=== PATIENT | male | born 1970 | race Caucasian/White ===

== ENCOUNTER 2020-03-14 21:22 | Emergency (ER) | payer MEDICAID, SELFPAY ==
[2020-03-14] VITALS (12 sets, daily range): BP systolic 133–202; BP diastolic 91–125; PULSE 82–124; RESP 14–20; TEMP 36.8–36.9; O2SAT 97–98; BMI 25.1
--- NOTE | 2020-03-14 21:42 | XR_ITS ---
EXAMINATION: CHEST 1 VIEW CLINICAL INFORMATION: Palpitations. COMPARISON: None. TECHNIQUE: An AP view of the chest is provided. FINDINGS: The cardiac silhouette is not enlarged. The mediastinal and hilar contours are unremarkable. There are neither pleural effusions nor pneumothoraces. There are no consolidations. The osseous structures are unremarkable. XR/XR chest 1V IMPRESSION: No evidence for acute disease.
--- NOTE | 2020-03-14 21:42 | ECG_ITS ---
Test Reason : CHEST PAIN Blood Pressure : / mmHG Vent. Rate : 120 BPM Atrial Rate : 120 BPM P-R Int : 152 ms QRS Dur : 086 ms QT Int : 318 ms P-R-T Axes : 068 021 031 degrees QTc Int : 449 ms Sinus tachycardia Nonspecific ST abnormality Abnormal ECG When compared with ECG of 19-JAN-2002 01:57, Vent. rate has increased BY 48 BPM Questionable change in QRS axis ST now depressed in Anterior leads T wave amplitude has decreased in Anterior leads Referred By: Dot Blas Electronically Signed By:MALVIN DU MD
[2020-03-14 21:54] LABS: MANUAL DIFF FLAG NO
--- NOTE | 2020-03-14 21:54 | ED_ITS ---
HPI - Arrhythmia/Palpitations General Chief Complaint: Arrhythmia/Palpitations Stated Complaint: palpitations Time Seen by Provider: 03/14/20 21:54 Source: patient Mode of arrival: ambulatory Limitations: no limitations History of Present Illness HPI narrative: This is a 49-year-old male without significant past medical history who states that for the past couple of days he has had intermittent and increasing heart palpitations without associated chest pain but states that he experiences shortness of breath as well as diaphoresis with what he refers to as small hiccups but otherwise denies any sort of nausea and says that he has had some left arm tingling intermittently for the past few weeks but attributed it to his guitar playing. Otherwise he denies any headache, dizziness, abdominal discomfort. He states that his palpitations are more prominent when he lays back. He denies any vision loss or neck pain, or tooth pain. Related Data Previous Rx's Medication Instructions Recorded hydrochlorothiazide 25 mg PO DAILY 30 Days #30 tab 03/15/20 Allergies Allergy/AdvReac Type Severity Reaction Status Date / Time No Known Allergies Allergy Verified 03/14/20 21:34 Review of Systems Review of Systems: Pertinent positives and negatives as stated in the in HPI and 10 point review systems is otherwise negative. [facility] Past Medical History Source: nursing notes reviewed Medical History Spontaneous pneumothorax Social History Social History Alcohol intake: never Smoked in Last 30 Days: No Use of substances other than those prescribed or required for medical reasons: No Advance Directives: Yes Advance Directives Information Provided: No Advance Directives on File: No Physical Exam Vital Signs: Vital Signs: Vital Signs Temp Pulse Resp BP Pulse Ox 03/15/20 01:30 79 138/87 03/15/20 01:28 79 13 161/100 H 98 03/15/20 01:00 80 160/91 H 03/15/20 00:45 82 147/92 H 03/15/20 00:07 97.8 F 92 16 150/93 H 97 03/14/20 23:31 98.3 F 92 19 133/93 H 97 03/14/20 23:15 82 142/91 H 98 03/14/20 23:00 92 156/110 H 98 03/14/20 22:30 100 16 151/97 H 98 03/14/20 22:29 102 H 15 150/100 H 98 03/14/20 22:27 106 H 17 167/108 H 97 03/14/20 22:25 109 H 170/113 H 03/14/20 22:24 108 H 17 170/113 H 97 03/14/20 22:15 15 185/117 H 97 03/14/20 21:51 98.4 F 113 H 14 165/115 H 98 03/14/20 21:30 124 H 20 202/125 H 98 Body Mass Index 25.1 VITAL SIGNS: Reviewed. GENERAL: Well developed, well nourished, in no acute distress. HEAD: Normocephalic/atraumatic, EYES: PERRLA, EOMI intact without pain, no nystagmus/pallor/icterus noted EARS: Ext canals without abnormality, TMs non-bulging and non-erythematous NOSE: Nares patent bilateral OROPHARYNX: no oral lesions noted, posterior pharynx clear and non-erythematous without noted tonsillar enlargement/erythema/exudates NECK: Supple, no adenopathy LUNGS: Normal breath sounds. No adventitious sounds or accessory muscle use. SpO2<98> CARDIOVASCULAR: Tachycardia, Regular rate and rhythm without noted murmurs, no JVD or lower extremity edema, on assessment of radial and ulnar pulses in the upper extremities is noted that the right is greater than the left, however on measurement of blood pressure RT: 185/117,LT: 180/126. ABDOMEN: Soft, non-tender, non-distended with bowel sounds. No rigidity. No guarding. No palpable masses or hernias noted MUSCULOSKELETAL: No tenderness, deformities, or effusions noted on gross inspection. EXTREMITIES: No cyanosis, clubbing or edema. SKIN: Inspection of the skin reveals no rashes, ulcerations, jaundice, pallor, or petechiae. NEUROLOGIC: Alert and oriented x 4. Strength and sensation to light touch were grossly intact x 4. Course Course Course Narrative: This is a 49-year-old male with history and clinical presentation most concerning for possible dissection as there are noted ST depressions in V4 -V6 and with the holes abnormalities in conjunction with the significant hypertension in addition to palpitations will evaluate for dissection as well as possible PE although clinical history is less prominent to support a PE. In addition, will rule out possible pneumonia but this is felt to be less likely. Review of all investigations is negative for evidence of infectious, anemia, electrolyte abnormality, thyroid dysfunction in etiology and high sensitivity troponin is negative with a chest x-ray negative for any acute findings. patient's blood pressure and heart rate responded well to the labetalol as well as gradual improvement of his symptoms. The decision was made in conjunction with the patient to proceed with CT for possible dissection given the constellation of symptoms and objective findings. on review of CT scan is negative for any evidence of PE or dissection and repeat high sensitivity troponin was again negative. All results and findings were discussed with patient at bedside and he was strongly encouraged to follow up with primary care provider and will be discharged with hydrochlorothiazide, daily as a 30 day supply in the interim. MDM - Arrhythmia/Palpitations Lab Data Result diagrams: 03/14/20 21:48 03/14/20 21:48 Labs: Lab Results 03/14/20 03/14/20 03/14/20 Range/Units 21:48 21:48 21:48 WBC 10.1 (4.8-10.8) X10*3/uL RBC 5.30 (4.60-5.80) X10*6/uL Hgb 15.3 (14.0-18.0) g/dl Hct 44.8 (42-52) % MCV 84.5 (80-98) fL MCH 28.9 (27.0-33.0) pg MCHC 34.2 (31.0-36.0) g/dl RDW 12.3 (11.0-16.0) % Plt Count 267 (160-400) X10*3/uL MPV 8.4 L (9.4-12.4) fL Immature Gran % (Auto) 0.2 (0.0-0.4) % Neut % (Auto) 58.0 (45-73) % Lymph % (Auto) 37.0 (20-40) % Waldo % (Auto) 3.9 (2-11) % Eos % (Auto) 0.3 (0-4) % Baso % (Auto) 0.6 (0-2) % Lymph # (Auto) 3.7 (1.2-4.9) X10*3/uL Waldo # (Auto) 0.4 (0.1-1.2) X10*3/uL Eos # (Auto) 0.0 (0.0-0.4) X10*3/uL Baso # (Auto) 0.1 (0.0-0.2) X10*3/uL Abs Immat Gran (auto) 0.02 (0.00-0.03) X10*3/uL Absolute Neuts (auto) 5.9 (2.0-8.3) X10*3/uL Absolute Nucleated RBC 0.000 (0.0-0.012) X10*3/uL Nucleated RBC % (auto) 0.0 (0.0-0.2) /100WBC PT (10.8-13.0) SEC INR (0.9-1.1) D-Dimer NG/ML Hold Blue Top SEE NOTE Sodium 140 (135-145) mmol/L Potassium 3.7 (3.3-5.1) mmol/l Chloride 101 (96-108) mmol/L Carbon Dioxide 26 (22-29) mmol/L Anion Gap 17 (12-20) BUN 11 (9-16) mg/dL Creatinine 1.06 (0.5-1.4) mg/dL Estim Creat Clear Calc 82.4 Estimated GFR > 60 Random Glucose 186 H (60-115) mg/dL Calcium 9.2 (8.4-10.2) mg/dL Troponin I High Sens (<3.5-35.0) ng/L TSH 2.10 (0.32-4.0) mIU/mL 03/14/20 03/14/20 03/15/20 Range/Units 21:48 22:32 01:34 WBC (4.8-10.8) X10*3/uL RBC (4.60-5.80) X10*6/uL Hgb (14.0-18.0) g/dl Hct (42-52) % MCV (80-98) fL MCH (27.0-33.0) pg MCHC (31.0-36.0) g/dl RDW (11.0-16.0) % Plt Count (160-400) X10*3/uL MPV (9.4-12.4) fL Immature Gran % (Auto) (0.0-0.4) % Neut % (Auto) (45-73) % Lymph % (Auto) (20-40) % Waldo % (Auto) (2-11) % Eos % (Auto) (0-4) % Baso % (Auto) (0-2) % Lymph # (Auto) (1.2-4.9) X10*3/uL Waldo # (Auto) (0.1-1.2) X10*3/uL Eos # (Auto) (0.0-0.4) X10*3/uL Baso # (Auto) (0.0-0.2) X10*3/uL Abs Immat Gran (auto) (0.00-0.03) X10*3/uL Absolute Neuts (auto) (2.0-8.3) X10*3/uL Absolute Nucleated RBC (0.0-0.012) X10*3/uL Nucleated RBC % (auto) (0.0-0.2) /100WBC PT 15.0 H (10.8-13.0) SEC INR 1.3 H (0.9-1.1) D-Dimer 233 NG/ML Hold Blue Top Sodium (135-145) mmol/L Potassium (3.3-5.1) mmol/l Chloride (96-108) mmol/L Carbon Dioxide (22-29) mmol/L Anion Gap (12-20) BUN (9-16) mg/dL Creatinine (0.5-1.4) mg/dL Estim Creat Clear Calc Estimated GFR Random Glucose (60-115) mg/dL Calcium (8.4-10.2) mg/dL Troponin I High Sens < 3.5 < 3.5 (<3.5-35.0) ng/L TSH (0.32-4.0) mIU/mL ECG Data Attestation: I personally reviewed and interpreted this ECG as follows: Prior ECG tracings: available for review Interpretation: sinus tachycardia, HR - 120, there is noted ST depressions V4- V6 without noted ST elevations elsewhere, NM/QRS/ QTC are within normal limits and on comparison with prior EKG the only observable differences are the ST changes in V4 -V6 Discharge Plan Discharge Clinical Impression: Palpitations Patient Disposition: Home, Self-Care Instructions: Heart Palpitations (ED), DASH Eating Plan (ED), Hypertension (ED) Additional Instructions: 1. Follow-up with your primary care provider by calling the office Saturday to set up an appointment. The patient and/or family acknowledge understanding of results (as applicable), diagnosis, treatment plan, need for follow up, and symptoms that should prompt a return to the emergency room. Prescriptions: New hydrochlorothiazide 25 mg tablet 25 mg PO DAILY 30 Days Qty: 30 RF: 0 Referrals: Physician,None [Primary Care Provider] - 2 days ( hypertension, palpitations)
[2020-03-14 21:56] LABS: Basophils Absolute Auto 0.1 X10*3/uL (0.0-0.2); Basophils Percent Auto 0.6 % (0-2); Eosinophils Percent Auto 0.3 % (0-4); Hematocrit 44.8 % (42-52); Hemoglobin 15.3 g/dl (14.0-18.0); Imm Gran Abs Auto 0.02 X10*3/uL (0.00-0.03); Imm Gran Pct Auto 0.2 % (0.0-0.4); Lymphocytes Absolute Auto 3.7 X10*3/uL (1.2-4.9); Mean Corpuscular HGB Conc 34.2 g/dl (31.0-36.0); Mean Corpuscular Hemoglobin 28.9 pg (27.0-33.0); Mean Corpuscular Volume 84.5 fL (80-98); Mean Platelet Volume 8.4 fL (9.4-12.4); Monocytes Absolute Auto 0.4 X10*3/uL (0.1-1.2); Monocytes Percent Auto 3.9 % (2-11); Neutrophils Absolute Auto 5.9 X10*3/uL (2.0-8.3); Platelet Count 267 X10*3/uL (160-400); Red Cell Distribution Width 12.3 % (11.0-16.0); White Blood Count 10.1 X10*3/uL (4.8-10.8)
[2020-03-14 22:21] LABS: Anion Gap 17 (12-20); Blood Urea Nitrogen 11 mg/dL (9-16); Calcium 9.2 mg/dL (8.4-10.2); Carbon Dioxide 26 mmol/L (22-29); Chloride 101 mmol/L (96-108); Creatinine Clr Calc Pharmacy 82.4; Estimated Glomerular Filt Rate > 60; Glucose Random 186 mg/dL (60-115); Potassium 3.7 mmol/l (3.3-5.1); Sodium 140 mmol/L (135-145)
[2020-03-14] MEDS: Labetalol HCL 100 MG/20 ML VIAL 10 MG IVPUSH (22:25)
[2020-03-14 22:28] LABS: Troponin-I High Sensitivity < 3.5 ng/L (<3.5-35.0)
[2020-03-14 22:56] LABS: INTERNATIONAL NORM RATIO 1.3 (0.9-1.1)
[2020-03-14 22:58] LABS: D Dimer 233 NG/ML
--- NOTE | 2020-03-14 23:25 | CT_ITS ---
EXAMINATION: CT PULMONARY EMBOLISM STUDY CLINICAL INFORMATION: Palpitations. COMPARISON: Same day chest radiograph. TECHNIQUE: Contiguous helical images of the chest were obtained following the administration of IV contrast. Multiplanar reconstructions were performed. MIPS were obtained and reviewed. DLP: 316 mGy-cm. CONTRAST: 80 mL of Omnipaque 350 were administered without incident. FINDINGS: The heart is of normal size. There is no pericardial effusion. The great vessels are unremarkable. Specifically, there is no pulmonary arterial filling defect. There is no CT evidence for pulmonary embolism. There are no chest wall masses. Review of lung windows demonstrates that there are neither pleural effusions nor pneumothoraces. There are no consolidations. There are no pulmonary parenchymal nodules. Limited evaluation of the upper abdomen demonstrates that the liver is of normal size and attenuation without focal lesions. Normal adrenal glands are identified. CT/CT angio chest IMPRESSION: No CT evidence for pulmonary embolism. Automated exposure control (Care Dose) Adjustment of the mA and/or kv according to patient size (this includes techniques or standardized protocols for targeted exams where dose is matched to indication / reason for exam; i.e. extremities or head).
[2020-03-15] MEDS: iohexoL 350 MG/ML 100 ML INFUS..BTL 70 ML IV (00:01)
[2020-03-15 00:07] VITALS: BP 150/93; PULSE 92; RESP 16; TEMP 36.6; O2SAT 97
[2020-03-15 00:45] VITALS: BP 147/92; PULSE 82
[2020-03-15 01:00] VITALS: BP 160/91; PULSE 80
--- NOTE | 2020-03-15 01:16 | ECG_ITS ---
Test Reason : CHEST PAIN Blood Pressure : / mmHG Vent. Rate : 076 BPM Atrial Rate : 076 BPM P-R Int : 164 ms QRS Dur : 094 ms QT Int : 374 ms P-R-T Axes : 034 014 036 degrees QTc Int : 420 ms Normal sinus rhythm Normal ECG When compared with ECG of 14-MAR-2020 21:26, Vent. rate has decreased BY [address] elevation has replaced ST depression in Anterolateral leads Possible Early repolarization Referred By: Dot Blas Electronically Signed By:MALVIN DU MD
[2020-03-15 01:28] VITALS: BP 161/100; PULSE 79; RESP 13; O2SAT 98
[2020-03-15 01:30] VITALS: BP 138/87; PULSE 79
[2020-03-15 02:08] LABS: Troponin-I High Sensitivity < 3.5 ng/L (<3.5-35.0)
[2020-03-15 02:39] VITALS: BP 136/98; PULSE 73; RESP 16; TEMP 36.6; O2SAT 98
== END 2020-03-15 02:42 | disposition home or self-care (01) ==
PROVIDERS: Emergency Provider Student in an Organized Health Care Education/Training Program
DX: R00.2 Palpitations (principal); R00.0 Tachycardia, unspecified; I10 Essential (primary) hypertension; R94.31 Abnormal electrocardiogram [ECG] [EKG]; Z79.899 Other long term (current) drug therapy
CPT/HCPCS: 36415; 71045; 71275; 80048; 84443; 84484; 85025; 85379; 85610; 93005; 96374; 99284; 99285; Q9967

== ENCOUNTER 2020-04-26 13:43 | Outpatient (REF) | payer MEDICAID, SELFPAY ==
[2020-04-26 14:14] LABS: MANUAL DIFF FLAG NO
[2020-04-26 14:17] LABS: Basophils Absolute Auto 0.1 X10*3/uL (0.0-0.2); Basophils Percent Auto 0.6 % (0-2); Eosinophils Percent Auto 0.1 % (0-4); Hematocrit 45.4 % (42-52); Hemoglobin 15.4 g/dl (14.0-18.0); Imm Gran Abs Auto 0.02 X10*3/uL (0.00-0.03); Imm Gran Pct Auto 0.2 % (0.0-0.4); Lymphocytes Absolute Auto 3.6 X10*3/uL (1.2-4.9); Lymphocytes Percent Auto 42.1 % (20-40); Mean Corpuscular HGB Conc 33.9 g/dl (31.0-36.0); Mean Corpuscular Hemoglobin 28.7 pg (27.0-33.0); Mean Corpuscular Volume 84.7 fL (80-98); Mean Platelet Volume 8.7 fL (9.4-12.4); Monocytes Absolute Auto 0.5 X10*3/uL (0.1-1.2); Monocytes Percent Auto 6.1 % (2-11); Neutrophils Absolute Auto 4.4 X10*3/uL (2.0-8.3); Neutrophils Percent Auto 50.9 % (45-73); Platelet Count 317 X10*3/uL (160-400); Red Blood Count 5.36 X10*6/uL (4.60-5.80); Red Cell Distribution Width 12.6 % (11.0-16.0); White Blood Count 8.6 X10*3/uL (4.8-10.8)
[2020-04-26 14:50] LABS: Alanine Aminotransferase 36 U/L (0-40); Albumin Level 5.2 g/dL (3.5-5.0); Alkaline Phosphatase 74 U/L (39-117); Anion Gap 15 (12-20); Aspartate Amino Transferase 30 U/L (5-37); Bilirubin Total 0.4 mg/dL (0.0-1.0); Blood Urea Nitrogen 16 mg/dL (9-16); Calcium 9.5 mg/dL (8.4-10.2); Carbon Dioxide 34 mmol/L (22-29); Chloride 95 mmol/L (96-108); Cholesterol 252 mg/dL; Estimated Glomerular Filt Rate > 60; Glucose Random 93 mg/dL (60-115); Potassium 4.1 mmol/l (3.3-5.1); Sodium 140 mmol/L (135-145); Total Protein 8.6 g/dL (6.5-8.0)
[2020-04-26 15:12] LABS: Prostate Specific Antigen Scr 1.23 ng/mL (<0.05-4.0); Thyroid Stimulating Hormone 1.21 uIU/mL (0.32-4.0)
== END 2020-04-26 13:44 | disposition home or self-care (01) ==
LOC: HO.LAB 13:43
PROVIDERS: PCP Internal Medicine; Visit Provider Internal Medicine
DX: I10 Essential (primary) hypertension (principal); R00.0 Tachycardia, unspecified
CPT/HCPCS: 36415; 80053; 82465; 84153; 84443; 85025

== ENCOUNTER → 2020-12-05 08:19 | Outpatient (BNVA) | payer MEDICAID, SELFPAY | PROVIDERS: PCP Internal Medicine; Referring Provider Internal Medicine; Visit Provider Surgery | DX: L72.0 Epidermal cyst (principal) | CPT/HCPCS: 99202 ==

== ENCOUNTER 2020-12-22 11:54 | Outpatient (REF) | payer MEDICAID, SELFPAY ==
[2020-12-22 12:34] VITALS: BMI 25.8
[2020-12-22 12:35] VITALS: BP 170/89; PULSE 87; RESP 16; TEMP 37; O2SAT 98
[2020-12-22 13:39] VITALS: BP 150/79; PULSE 91; RESP 16; O2SAT 96
--- NOTE | 2020-12-22 13:43 | W.PM.OPN ---
Operative Note Operative Note Date of Service: 12/22/20 Narrative: Preop diagnosis: Epidermal inclusion cyst, left groin Postop diagnosis: the same Procedure: Excision of epidermal inclusion cyst under local anesthesia Surgeon: Parish Carrillo MD The patient is a 50-year-old male with an area of recurrent swelling and drainage on the left groin. Examination at showed an induration suggestive of an epidermal inclusion cyst. He understood the technique of excision under local anesthesia. He was aware of the risks, benefits, and alternatives. He was brought to the minor procedure room and placed supine. The area of the groin was prepped and draped in the usual sterile fashion. A surgical time-out was done. Infiltrated the planned line of incision with lidocaine 1%. I made an incision using blade 15 on the skin in elliptical fashion surrounding the induration in this carried down through the full-thickness skin and subcutaneous fat sharply to excise this entire indurated area. The excised area was about 3.8 cm by 1.2 cm in dimension I closed the incision with full-thickness nylon 3-0 interrupted sutures. Dressings were applied. The patient tolerated procedure well with no complications noted. He wass given wound care instructions.
== END 2020-12-22 11:55 | disposition home or self-care (01) ==
LOC: HO.MS 11:54
PROVIDERS: PCP Internal Medicine; Visit Provider Surgery
PROC: (CPT 11403; principal; 2020-12-22 12:50)
DX: L72.0 Epidermal cyst (principal)
CPT/HCPCS: 11403; 88304

== ENCOUNTER → 2021-01-04 12:46 | Outpatient (BNVA) | payer MEDICAID, SELFPAY | PROVIDERS: PCP Internal Medicine; Referring Provider Internal Medicine; Visit Provider Surgery | DX: L72.0 Epidermal cyst (principal); Z48.02 Encounter for removal of sutures | CPT/HCPCS: 99212 ==

== ENCOUNTER 2024-03-27 16:55 | Emergency (ER) | payer MEDICAID, SELFPAY ==
--- NOTE | ~2024-03-27 | CT_ITS ---
EXAMINATION: CT HEAD WITHOUT CONTRAST CLINICAL INFORMATION: Hypertensive crisis. Headache. COMPARISON: None available. TECHNIQUE: Contiguous axial imaging was performed from the skull base to vertex without intravenous administration of contrast. This CT examination was performed using dose optimization techniques as appropriate, variously including the following: *Automated exposure control *Adjustment of mA and/or kV according to patient size (this includes techniques or standardized protocols for targeted exams where dose is matched to indication/reason for exam; i.e. extremities or head) *Use of iterative reconstruction technique DLP: 792 mGy-cm FINDINGS: There is no acute intracranial hemorrhage. There is no evidence of acute/subacute cerebral or cerebellar infarction. There is no mass effect. No midline shift. No extra-axial fluid collection. The ventricles are normal in size. The orbits are symmetric and within normal limits. The calvarium is intact. There is near complete opacification of the right mastoid air cells. The visualized paranasal sinuses are clear. CT/CT head/brain wo IV con IMPRESSION: No acute intracranial pathology. Electronically signed by: Abel Rivera DO 03/27/2024 09:02 PM EST
[2024-03-27 17:13] VITALS: BP 185/114; PULSE 116; RESP 18; TEMP 36.9; O2SAT 98; BMI 28.0
--- NOTE | 2024-03-27 17:16 | ECG_ITS ---
Test Reason : DIZZINESS Blood Pressure : / mmHG Vent. Rate : 111 BPM Atrial Rate : 111 BPM P-R Int : 174 ms QRS Dur : 084 ms QT Int : 336 ms P-R-T Axes : 050 010 031 degrees QTc Int : 456 ms Sinus tachycardia Cannot rule out Anterior infarct , age undetermined Abnormal ECG When compared with ECG of 15-MAR-2020 01:27, No significant change was found Referred By: Generic ED Physician Electronically Signed By:Nj Ferrara
[2024-03-27 17:42] LABS: MANUAL DIFF FLAG NO
[2024-03-27 17:48] LABS: Basophils Absolute Auto 0.1 X10*3/uL (0.0-0.2); Basophils Percent Auto 0.6 % (0-2); Eosinophils Absolute Auto 0.1 X10*3/uL (0.0-0.4); Eosinophils Percent Auto 0.5 % (0-4); Hematocrit 46.9 % (42.0-52.0); Hemoglobin 16.1 g/dl (14.0-18.0); Imm Gran Abs Auto 0.03 X10*3/uL (0.00-0.03); Imm Gran Pct Auto 0.3 % (0.0-0.4); Lymphocytes Absolute Auto 3.1 X10*3/uL (1.2-4.9); Lymphocytes Percent Auto 33.7 % (20-40); Mean Corpuscular HGB Conc 34.3 g/dl (31.0-36.0); Mean Corpuscular Hemoglobin 29.2 pg (27.0-33.0); Mean Corpuscular Volume 85.1 fL (80.0-98.0); Mean Platelet Volume 8.5 fL (9.4-12.4); Monocytes Absolute Auto 0.6 X10*3/uL (0.1-1.2); Neutrophils Absolute Auto 5.5 x10*3/uL (2.0-8.3); Neutrophils Percent Auto 58.9 % (45-73); Platelet Count 236 X10*3/uL (160-400); Red Blood Count 5.51 X10*6/uL (4.60-5.80); White Blood Count 9.3 X10*3/uL (4.8-10.8)
[2024-03-27 17:59] LABS: Alanine Aminotransferase 119 U/L (0-40); Albumin Level 4.8 g/dL (3.5-5.0); Alkaline Phosphatase 69 U/L (39-117); Anion Gap 14 (12-20); Aspartate Amino Transferase 69 U/L (5-37); Bilirubin Total 0.3 mg/dL (0.0-1.0); Blood Urea Nitrogen 12 mg/dL (9-16); Calcium 10.1 mg/dL (8.4-10.2); Carbon Dioxide 27 mmol/L (22-29); Chloride 99 mmol/L (96-108); Creatinine Clr Calc Pharmacy 104.2; Estimated Glomerular Filt Rate > 60; Glucose Random 116 mg/dL (60-115); Magnesium 2.2 mg/dL (1.6-2.6); Potassium 4.5 mmol/L (3.3-5.1); Sodium 135 mmol/L (135-145); Total Protein 8.6 g/dL (6.5-8.0)
[2024-03-27 18:09] LABS: Troponin-I High Sensitivity < 2.7 ng/L (<3.5-35.0)
--- NOTE | 2024-03-27 19:10 | ED_ITS ---
HPI - General Adult General Chief complaint: General Medical Stated complaint: HBP, out of medication Time Seen by Provider: 03/27/24 19:39 Source: patient Mode of arrival: ambulatory Limitations: no limitations History of Present Illness ED Provider: lashell CAMARILLO narrative: Patient's history of mild hypotension ran out of his atenolol 25 mg last month comes here as he felt high blood pressure on arrival blood pressure was 185/114 repeat blood pressure during stay was 137/84 without any medication no nausea no vomiting no significant headache no chest pain no shortness a breath Related Data Home Medications ?Medication ?Instructions ?Recorded ?Confirmed atenolol 25 mg tablet 25 mg PO DAILY 12/05/20 Previous Rx's ?Medication ?Instructions ?Recorded hydrochlorothiazide 25 mg tablet 25 mg PO DAILY 30 days #30 tabs 03/15/20 atenolol 25 mg tablet 25 mg PO DAILY #90 tabs 03/27/24 Allergies Allergy/AdvReac Type Severity Reaction Status Date / Time No Known Allergies Allergy Verified 03/27/24 17:15 Review of Systems 2 Review of Systems: Yes all other systems are reviewed and are negative PMFSH Past Medical History Medical History Epidermal inclusion cyst Hypertension Spontaneous pneumothorax Surgical History History of removal of cyst (~2020) No pertinent past surgical history Social History Social History Alcohol intake: current Alcohol intake frequency: holidays/special occasions only Patient Tobacco Use Status: Never used Tobacco Smoked in Last 30 Days: No Use of substances other than those prescribed or required for medical reasons: No Advance Directives: No Advance Directives Information Provided: No Do you have a plan to hurt others: No Plan Physical Exam ED Vital Signs: Vital Signs - 24 hr 03/27/24 17:13 03/27/24 19:30 03/27/24 20:14 Temperature 98.4 F 98.3 F Pulse Rate 116 H 110 H 102 H Respiratory Rate 18 18 Blood Pressure 185/114 H 157/96 H 137/85 Pulse Oximetry 98 99 Oxygen Delivery Method Room Air Room Air 03/27/24 20:30 03/27/24 23:02 Temperature 98.4 F 98.4 F Pulse Rate 101 H 101 H Respiratory Rate 19 19 Blood Pressure 137/84 137/84 Pulse Oximetry 95 95 Oxygen Delivery Method Room Air Room Air BMI result Body Mass Index 28.0 Appearance: Alert. Oriented X3. No acute distress. Eyes: PERRLA, No Nystagmus ENT: Pharynx normal. Oral Mucosa moist Neck: Normal inspection. Neck supple. CVS: Normal heart rate and rhythm. Pulses normal. Respiratory: No respiratory distress. Equal air entry bilateral, no wheezing/rales/rhonchi Abdomen: Soft and nontender. Bowel sounds are present, no mass palpable, no CVA tenderness Skin: Skin warm and dry. Normal skin color. Normal skin turgor. Extremities: No lower extremity edema. No calf tenderness Neuro: Oriented X 3. No motor deficit. No sensory deficit.No cerebellar signs , cranial nerves II-XII intact Course Course Course Narrative: This is an RME performed by Rayna Chaudhary, [employer] OPERATOR: Additional HPI, ROS, PE not included below will be deferred to primary provider. Patient is a 53-year-old male who presents emergency department for evaluation. He reports he has not taken his atenolol 25 mg since March 05, due to lack of insurance coverage. He is complaining of elevated blood pressure readings, associated headache, intermittent dizziness and blurred vision, occasional palpitations. No focal neurological deficits. Plan: EKG, labs, CT head Medications Administered Discontinued Medications Generic Name Dose Route Start Last Admin Trade Name Freq PRN Reason Stop Dose Admin Metoprolol Tartrate 25 mg 03/27/24 20:08 03/27/24 20:14 Metoprolol Tartrate 25 Mg Tablet PO 03/27/24 20:09 25 mg ONCE ONE Administration Protocol Medical Decision Making Medical Decision Making [facility] Narrative: Patient with mild hypotension without any end-organ damage will represcribe him atenolol advised to follow up with his PCP Lab Data [facility] Lab Attestation statement: I reviewed the patient's lab results. 03/27/24 17:35 03/27/24 17:35 Labs: Lab Results 03/27/24 Range/Units 17:35 WBC 9.3 (4.8-10.8) X10*3/uL RBC 5.51 (4.60-5.80) X10*6/uL Hgb 16.1 (14.0-18.0) g/dl Hct 46.9 (42.0-52.0) % MCV 85.1 (80.0-98.0) fL MCH 29.2 (27.0-33.0) pg MCHC 34.3 (31.0-36.0) g/dl RDW 13.0 (11.0-16.0) % Plt Count 236 (160-400) X10*3/uL MPV 8.5 L (9.4-12.4) fL Immature Gran % (Auto) 0.3 (0.0-0.4) % Neut % (Auto) 58.9 (45-73) % Lymph % (Auto) 33.7 (20-40) % [place] % (Auto) 6.0 (2-11) % Eos % (Auto) 0.5 (0-4) % Baso % (Auto) 0.6 (0-2) % Lymph # (Auto) 3.1 (1.2-4.9) X10*3/uL [place]imer # (Auto) 0.6 (0.1-1.2) X10*3/uL Eos # (Auto) 0.1 (0.0-0.4) X10*3/uL Baso # (Auto) 0.1 (0.0-0.2) X10*3/uL Abs Immat Gran (auto) 0.03 (0.00-0.03) X10*3/uL Absolute Neuts (auto) 5.5 (2.0-8.3) x10*3/uL Absolute Nucleated RBC 0.000 (0.0-0.012) X10*3/uL Nucleated RBC % (auto) 0.0 (0.0-0.2) /100WBC Sodium 135 (135-145) mmol/L Potassium 4.5 (3.3-5.1) mmol/L Chloride 99 (96-108) mmol/L Carbon Dioxide 27 (22-29) mmol/L Anion Gap 14 (12-20) BUN 12 (9-16) mg/dL Creatinine 0.87 (0.5-1.4) mg/dL Estim Creat Clear Calc 104.2 Estimated GFR > 60 Random Glucose 116 H (60-115) mg/dL Calcium 10.1 D (8.4-10.2) mg/dL Magnesium 2.2 (1.6-2.6) mg/dL Total Bilirubin 0.3 (0.0-1.0) mg/dL AST 69 H (5-37) U/L ALT 119 H (0-40) U/L Alkaline Phosphatase 69 (39-117) U/L Troponin I High Sens < 2.7 (<3.5-35.0) ng/L Total Protein 8.6 H (6.5-8.0) g/dL Albumin 4.8 (3.5-5.0) g/dL Independent Interpretation I performed an independent interpretation of an: EKG Interpretation: Sinus tachycardia heart rate 111 per minute no acute ST-T changes no acute ischemia Discharge Plan Discharge Clinical Impression: Hypertension Patient Disposition: Home, Self-Care Instructions: Chronic Hypertension (DC) Additional Instructions: Take medication daily for blood pressure as prescribed and follow with your PCP Prescriptions: New atenolol 25 mg tablet 25 mg PO DAILY Qty: 90 2RF No Action hydrochlorothiazide 25 mg tablet 25 mg PO DAILY 30 Days Qty: 30 0RF atenolol 25 mg tablet 25 mg PO DAILY Interventions: ED Discharge Assessment Last Done: 03/27/24 23:02 Discharge Date/Time: 03/27/24 20:35 Print Language: Comoran
[2024-03-27 19:30] VITALS: BP 157/96; PULSE 110; RESP 18; TEMP 36.8; O2SAT 99
[2024-03-27 20:14] VITALS: BP 137/85; PULSE 102
[2024-03-27] MEDS: Metoprolol Tartrate 25 MG TABLET PO (20:14)
[2024-03-27 20:30] VITALS: BP 137/84; PULSE 101; RESP 19; TEMP 36.9; O2SAT 95
[2024-03-27 23:02] VITALS: BP 137/84; PULSE 101; RESP 19; TEMP 36.9; O2SAT 95
== END 2024-03-27 20:35 | disposition home or self-care (01) ==
PROVIDERS: Emergency Provider Internal Medicine
DX: I10 Essential (primary) hypertension (principal); R42 Dizziness and giddiness; R51.9 Headache, unspecified; H53.8 Other visual disturbances; Z79.899 Other long term (current) drug therapy
CPT/HCPCS: 36415; 70450; 80053; 83735; 84484; 85025; 93005; 99284

== ENCOUNTER → 2024-03-27 17:16 | Outpatient (BNV) | payer MEDICAID, SELFPAY | PROVIDERS: Emergency Provider Internal Medicine; Visit Provider Internal Medicine Cardiovascular Disease | DX: R94.31 Abnormal electrocardiogram [ECG] [EKG] (principal) | CPT/HCPCS: 93010 ==

== ENCOUNTER 2024-07-19 15:31 | Emergency (ER) | payer MEDICAID, SELFPAY ==
[2024-07-19] VITALS (7 sets, daily range): BP systolic 135–179; BP diastolic 83–103; PULSE 110–119; RESP 16–20; TEMP 35.9–36.7; O2SAT 97–100; BMI 26.4
--- NOTE | ~2024-07-19 | CT_ITS ---
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 The right palatine tonsil is enlarged and there is a low-attenuation central fluid collection measuring 0.9 x 0.4 x 1.5 cm with slight rim enhancement. There is a smaller low-attenuation collection in the anterior tonsil measuring 4 mm in diameter. The enlarged tonsil is deviating the airway leftward. Salivary glands are within normal limits. No sialoliths. No suspicious thyroid nodules. Visualized lung apices are clear. No acute fracture or dislocation. Degenerative changes of the cervical spine. IMPRESSION: Enlarged right palatine tonsil with low-attenuation central fluid collection suspicious for early tonsillar abscess versus phlegmon. This document has been electronically signed by: Hola Hernandes MD on 07/19/2024 18:55:35
--- NOTE | 2024-07-19 16:32 | ED.GENADULT ---
HPI - General Adult General Chief complaint: General Medical Stated complaint: pt cant speak bacterial infection in throat 4 days Time Seen by Provider: 07/19/24 16:32 Source: patient Mode of arrival: ambulatory Limitations: no limitations History of Present Illness ED Provider: HALIMA VYAS PA-C HPI narrative: 54 year old male with pmhx significant for HTN presents to the ED today for evaluation of sore throat, difficulty and pain on swallowing x5 days. Admits to pain extending from right lower jaw/neck into his right ear which has been worsening since onset. Reports low grade fevers at home. TMAX 101F. Taking tylenol. He cannot recall when his last dose was. He reports decreased PO intake over the last few days secondary to pain. Admits to poor dentition - has not followed with a dentist in some time. No hx of recurrent strep throat. Denies headache, dizziness, hearing changes, chest pain, N/V. Related Data Home Medications ?Medication ?Instructions ?Recorded ?Confirmed atenolol 25 mg tablet 25 mg PO DAILY 12/05/20 Previous Rx's ?Medication ?Instructions ?Recorded hydrochlorothiazide 25 mg tablet 25 mg PO DAILY 30 days #30 tabs 03/15/20 atenolol 25 mg tablet 25 mg PO DAILY #90 tabs 03/27/24 Allergies Allergy/AdvReac Type Severity Reaction Status Date / Time No Known Allergies Allergy Verified 07/19/24 15:58 Review of Systems Review of Systems: Constitutional: No fever, chills, fatigue, night sweats, weight changes ENT/Mouth: No ear pain, hearing loss, nasal congestion, sinus pain, rhinorrhea, +sore throat Eyes: No eye pain, swelling, redness, vision changes, discharge Cardio: No chest pain, palpitations, ARTEAGA, orthopnea, peripheral edema Pulm: No SOB, cough, sputum, wheezing, dyspnea, hemoptysis GI: No nausea, vomiting, hematemesis, abdominal pain, diarrhea, constipation, hematochezia, melena : No irregular bleeding, dysuria, frequency, urgency, hesitancy, hematuria, flank pain, urinary flow changes, urinary incontinence or retention MSK: No back pain, neck pain, joint pain, myalgias Skin: No lesions, rashes Neuro: No weakness, numbness, paresthesias, LOC, dizziness, headache Psych: No anxiety/panic, depression, SI/HI, AH/VH All other systems reviewed and are negative. [facility] Past Medical History Attestation statement: The following information was validated with the patient. Source: old records reviewed and nursing notes reviewed Medical History Epidermal inclusion cyst Hypertension Spontaneous pneumothorax Surgical History History of removal of cyst (~2020) No pertinent past surgical history Social History Social History Alcohol intake: current Alcohol intake frequency: holidays/special occasions only Patient Tobacco Use Status: Never used Tobacco Physical Exam ED Vital Signs: Vital Signs - 24 hr 07/19/24 15:53 07/19/24 17:16 07/19/24 17:22 Temperature 96.7 F L 98.1 F Pulse Rate 119 H 112 H 112 H Respiratory Rate 20 18 Blood Pressure 179/101 H 169/103 H 169/103 H Pulse Oximetry 97 98 Oxygen Delivery Method Room Air Room Air 07/19/24 18:30 07/19/24 18:49 07/19/24 19:01 Temperature Pulse Rate 112 H 110 H 119 H Respiratory Rate 18 18 Blood Pressure 135/85 141/83 H 164/97 H Pulse Oximetry 97 98 Oxygen Delivery Method Room Air Room Air BMI result Body Mass Index 26.4 General: Well appearing, in no acute distress. Skin: Warm, dry, intact. No rashes or lesions. Head: Normocephalic, atraumatic. EENT: Hearing is intact b/l. Conjunctiva clear. PERRLA. EOM intact. Moist mucous membranes.?+multiple dental caries/ poor dentition/ missing teeth. No obvious periapical abscess. posterior oropharynx with noted swelling. right tonsillar edema and erythema with uvula deviation to the left. no obvious exudates. muffled voice. Neck: swelling noted to right anerior neck. no submandibular or submental LAD. Cardiac: Chest wall symmetric. tachycardic, normal rhythm Lungs: maintaining airway. Normal respiratory effort without accessory muscle use. CTA bilaterally Neuro: AOx3. Normal speech. Ambulating with steady gait. Course Course Course Narrative: 1654 -- concern for sepsis. lactic/ blood cultures ordered. IV fluids ordered. Unasyn ordered for broad-spectrum coverage. Concern for peritonsillar abscess. > hypertensive to 179/101. admits to hx HTN - has not taken his atenolol today. pain likely contributing as well. denies CASTELLANO, dizziness, chest pain. 1705 -- leukocytosis to 15.3. No anemia. H&H stable. Chemistry without acute electrolyte abnormality requiring intervention. No URBAN. Random glucose 123. lactic acid wnl at 1.5. liver function around baseline. strep testing negative. > imaging pending > treated w/ decadron for swelling. morphine for pain. 2037 -- CT/tissues neck showing enlarged right palatine tonsil with low attenuation central fluid collection measuring 0.9 x 0.4 x 1.5 cm with slight rim enhancement. Smaller low-attenuation collection in the anterior right tonsil measuring 4 mm in diameter. The enlarged tonsil is deviating the airway leftward. Salivary glands normal. > findings were discussed with my attending, Dr. Bennett. we attempted needle aspiration after pre medicating w/ topical and injectable lido. we were unable to find the fluid pocket/ aspirate contents. patient had difficulty tolerating procedure d/t gag reflex. > discussed the need for further treatment at an acute care facility that has ENT coverage along with continued IV antibiotics. patient is agreeable to transfer. > [facility] closed to transfers. > spoke with Indy from [facility] transfer line - accepted patient for ED to ED transfer at [facility]. Accepting doctor Dr. Mccall. images uploaded to [employer]. Medications Administered Discontinued Medications Generic Name Dose Route Start Last Admin Trade Name Anitra PRN Reason Stop Dose Admin Dexamethasone Sodium Phosphate 10 mg 07/19/24 16:46 07/19/24 17:02 Dexamethasone Sod Phosphate 10 Mg/Ml Vial IVPUSH 07/19/24 16:47 10 mg ONCE ONE Administration Ethyl Chloride 1 spray 07/19/24 19:26 07/19/24 20:31 Ethyl Chloride [place] TOPICAL 07/19/24 19:27 1 spray ONCE ONE Administration Ampicillin Sodium/Sulbactam 100 mls @ 200 mls/hr 07/19/24 16:46 07/19/24 17:28 Sodium 3 gm/ Sodium Chloride IV 07/19/24 17:15 Infused ONCE ONE Infusion Sodium Chloride 1,000 mls @ 999 mls/hr 07/19/24 17:00 07/19/24 18:47 Ns IV 07/19/24 18:00 Infused .Q1H1M LIZ Infusion Iohexol 100 ml 07/19/24 17:15 07/19/24 17:16 Iohexol 350 Mg/Ml 100 Ml Infus..Btl IV 07/19/24 17:16 60 ml ONCE ONE Administration Labetalol HCl 5 mg 07/19/24 17:03 07/19/24 17:22 Labetalol Hcl 100 Mg/20 Ml Vial IVPUSH 07/19/24 17:04 5 mg ONCE ONE Administration Lidocaine HCl 5 ml 07/19/24 19:13 07/19/24 20:30 Lidocaine Hcl 1 % Mpf 5 Ml Vial INFILTRATI 07/19/24 19:14 5 ml ONCE ONE Administration Lidocaine HCl 5 ml 07/19/24 19:13 07/19/24 20:31 Lidocaine Hcl 1 % Mpf 5 Ml Vial INFILTRATI 07/19/24 19:14 5 ml ONCE ONE Administration Lidocaine HCl 1 appl 07/19/24 19:18 07/19/24 19:41 Lidocaine Hcl 4 % Dzphag-R-Cch 4 Ml TOPICAL 07/19/24 19:19 Not Given ONCE ONE Morphine Sulfate 2 mg 07/19/24 17:04 07/19/24 17:23 Morphine Sulfate 2 Mg/Ml Cartridge IVPUSH 07/19/24 17:05 2 mg ONCE ONE Administration Protocol Procedures Abscess I/D Site: neck Side (if applicable): right Local Anesthetic: lidocaine 1% and other anesthetic (ethyl chloride) Amount of anesthesia used (mL): 5 Technique: needle aspiration Amount of fluid expressed (mL): 0 Sent for culture/gram staining?: No Irrigation: No Packing used?: none Medical Decision Making Medical Decision Making MDM Narrative: 54 year old male with pmhx significant for HTN presents to the ED today for evaluation of sore throat, difficulty and pain on swallowing x5 days. Patient was hypertensive to 179/101, tachycardic to 119. Afebrile. Maintaining airway. multiple dental caries/ poor dentition/ missing teeth. No obvious periapical abscess. Minimal amount of swelling noted to right anterior neck. ttp. posterior oropharynx with noted swelling. right tonsillar edema with uvula deviation to the left. no obvious exudates. muffled voice. Lungs are CTA b/l. airway patent. 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 Differential Diagnosis Differential Diagnoses: The differential diagnosis associated with the presentation includes As above Admission/Observation Consideration of admission/observation: Escalation of care including admission/observation considered Peritonsillar abscess requiring IV antibiotics. Transferred to [facility]. Consult Healthcare Provider [facility] Lab Data MDM Lab Attestation statement: I reviewed the patient's lab results. As above 07/19/24 16:37 07/19/24 16:37 Labs: Lab Results 07/19/24 Range/Units 16:37 WBC 15.3 H (4.8-10.8) X10*3/uL RBC 5.51 (4.60-5.80) X10*6/uL Hgb 15.8 (14.0-18.0) g/dl Hct 46.5 (42.0-52.0) % MCV 84.4 (80.0-98.0) fL MCH 28.7 (27.0-33.0) pg MCHC 34.0 (31.0-36.0) g/dl RDW 12.8 (11.0-16.0) % Plt Count 307 D (160-400) X10*3/uL MPV 8.6 L (9.4-12.4) fL Immature Gran % (Auto) 0.4 (0.0-0.4) % Neut % (Auto) 78.6 H (45-73) % Lymph % (Auto) 13.0 L (20-40) % [place] % (Auto) 7.3 (2-11) % Eos % (Auto) 0.3 (0-4) % Baso % (Auto) 0.4 (0-2) % Lymph # (Auto) 2.0 (1.2-4.9) X10*3/uL [place] # (Auto) 1.1 (0.1-1.2) X10*3/uL Eos # (Auto) 0.1 (0.0-0.4) X10*3/uL Baso # (Auto) 0.1 (0.0-0.2) X10*3/uL Abs Immat Gran (auto) 0.06 H (0.00-0.03) X10*3/uL Absolute Neuts (auto) 12.0 H (2.0-8.3) x10*3/uL Absolute Nucleated RBC 0.000 (0.0-0.012) X10*3/uL Nucleated RBC % (auto) 0.0 (0.0-0.2) /100WBC Sodium 141 (135-145) mmol/L Potassium 4.0 (3.3-5.1) mmol/L Chloride 103 (96-108) mmol/L Carbon Dioxide 24 (22-29) mmol/L Anion Gap 18 (12-20) BUN 14 (9-16) mg/dL Creatinine 0.85 (0.5-1.4) mg/dL Estim Creat Clear Calc 97.0 Estimated GFR > 60 Random Glucose 123 H (60-115) mg/dL Lactic Acid 1.5 (0.5-2.0) mmol/L Calcium 10.0 (8.4-10.2) mg/dL Total Bilirubin 0.9 (0.0-1.0) mg/dL Direct Bilirubin 0.6 H (0.0-0.5) mg/dL AST 44 H (5-37) U/L ALT 67 H (0-40) U/L Alkaline Phosphatase 91 (39-117) U/L Total Protein 9.6 H (6.5-8.0) g/dL Albumin 4.6 (3.5-5.0) g/dL Lipase 10 (8-78) U/L S. pyogenes GrpA LOW Negative (Negative) Independent Interpretation I performed an independent interpretation of an: CT Scan Interpretation: CT soft tissues neck showing fluid collection within right palatine tonsil Radiology Impression Discussion of test interpretation with radiology: I have reviewed the radiologist's reading. Radiologist Impression: Procedure(s): CT soft tissue neck w IV con Accession Number(s): [id number] cc: Physician,Unknown ; Halima Vyas~ Report Number: [id number]: Total DLP = 713.00 mGy-cm ADDENDUMThis document has been electronically signed by: George Howell MD on 07/19/2024 19:10:23 ADDENDUM: This report was discussed with STEPHEN Barnes on Jul 19, 2024 19:13:00 EDT. 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 The right palatine tonsil is enlarged and there is a low-attenuation central fluid collection measuring 0.9 x 0.4 x 1.5 cm with slight rim enhancement. There is a smaller low-attenuation collection in the anterior tonsil measuring 4 mm in diameter. The enlarged tonsil is deviating the airway leftward. Salivary glands are within normal limits. No sialoliths. No suspicious thyroid nodules. Visualized lung apices are clear. No acute fracture or dislocation. Degenerative changes of the cervical spine. IMPRESSION: Enlarged right palatine tonsil with low-attenuation central fluid collection suspicious for early tonsillar abscess versus phlegmon. This document has been electronically signed by: Hola Hernandes MD on 07/19/2024 18:55:35 External Record Review External record reviewed: Inpatient record Prescription Management I considered prescription management with: Pain Medication and Antibiotic Chronic Conditions Patient?s care impacted by: Hypertension Social Determinants Patient?s care significantly limited by Social Determinants of Health including: Other Social Determinant of Health Critical Care Time Critical Care Time Critical Care Time: Yes Total Critical Care Time: 40 Attestation: Critical care time in the amount of 40 minutes has been provided to the patient in terms of direct patient care, frequent reevaluation, consultation with [facility]/ [facility], review and interpretation of medical data and results, and management of potentially life-threatening conditions. This is all outside of any medical procedures. Discharge Plan Discharge Clinical Impression: Peritonsillar abscess Patient Disposition: [facility] Transfer Details: [facility] - accepting physician Dr. Mccall Additional Instructions: CT soft tissue neck with contrast Comparison: None Findings: The visualized intracranial contents are unremarkable. The right palatine tonsil is enlarged and there is a low-attenuation central fluid collection measuring 0.9 x 0.4 x 1.5 cm with slight rim enhancement. There is a smaller low-attenuation collection in the anterior tonsil measuring 4 mm in diameter. The enlarged tonsil is deviating the airway leftward. Salivary glands are within normal limits. No sialoliths. No suspicious thyroid nodules. Visualized lung apices are clear. No acute fracture or dislocation. Degenerative changes of the cervical spine. IMPRESSION: Enlarged right palatine tonsil with low-attenuation central fluid collection suspicious for early tonsillar abscess versus phlegmon. Prescriptions: No Action hydrochlorothiazide 25 mg tablet 25 mg PO DAILY 30 Days Qty: 30 0RF atenolol 25 mg tablet 25 mg PO DAILY Qty: 90 2RF atenolol 25 mg tablet 25 mg PO DAILY Interventions: Acute Care Transfer Worksheet (ED) Last Done: 07/19/24 21:47 Discharge Date/Time: 07/19/24 21:48 Print Language: Chadian
[2024-07-19 16:46] LABS: MANUAL DIFF FLAG NO
[2024-07-19 16:47] LABS: Basophils Absolute Auto 0.1 X10*3/uL (0.0-0.2); Basophils Percent Auto 0.4 % (0-2); Eosinophils Absolute Auto 0.1 X10*3/uL (0.0-0.4); Eosinophils Percent Auto 0.3 % (0-4); Hematocrit 46.5 % (42.0-52.0); Hemoglobin 15.8 g/dl (14.0-18.0); Imm Gran Abs Auto 0.06 X10*3/uL (0.00-0.03); Imm Gran Pct Auto 0.4 % (0.0-0.4); Mean Corpuscular Hemoglobin 28.7 pg (27.0-33.0); Mean Corpuscular Volume 84.4 fL (80.0-98.0); Mean Platelet Volume 8.6 fL (9.4-12.4); Monocytes Absolute Auto 1.1 X10*3/uL (0.1-1.2); Monocytes Percent Auto 7.3 % (2-11); Neutrophils Percent Auto 78.6 % (45-73); Platelet Count 307 X10*3/uL (160-400); Red Blood Count 5.51 X10*6/uL (4.60-5.80); Red Cell Distribution Width 12.8 % (11.0-16.0); White Blood Count 15.3 X10*3/uL (4.8-10.8)
[2024-07-19 16:56] LABS: IDNOW Serial# 08D9AD1C; Strep A Nucleic Acid Negative (Negative)
[2024-07-19 17:01] LABS: Alanine Aminotransferase 67 U/L (0-40); Albumin Level 4.6 g/dL (3.5-5.0); Alkaline Phosphatase 91 U/L (39-117); Anion Gap 18 (12-20); Aspartate Amino Transferase 44 U/L (5-37); Bilirubin Direct 0.6 mg/dL (0.0-0.5); Bilirubin Total 0.9 mg/dL (0.0-1.0); Blood Urea Nitrogen 14 mg/dL (9-16); Carbon Dioxide 24 mmol/L (22-29); Chloride 103 mmol/L (96-108); Estimated Glomerular Filt Rate > 60; Glucose Random 123 mg/dL (60-115); Lactic Acid 1.5 mmol/L (0.5-2.0); Lipase 10 U/L (8-78); Sodium 141 mmol/L (135-145); Total Protein 9.6 g/dL (6.5-8.0)
[2024-07-19] MEDS: dexAMETHasone sod phosphate 10 MG/ML VIAL IVPUSH (17:02)
[2024-07-19] MEDS: Ampicillin Sodium/Sulbactam Na 3 GM in 0.9 % Sodium Chloride 100 ML IV (17:02)
[2024-07-19] MEDS: 0.9 % Sodium Chloride 1,000 ML 999 ML IV (17:02)
[2024-07-19] MEDS: iohexoL 350 MG/ML 100 ML INFUS..BTL IV (17:16)
[2024-07-19] MEDS: Labetalol HCL 100 MG/20 ML VIAL IVPUSH (17:22)
[2024-07-19] MEDS: Morphine Sulfate 2 MG/ML CARTRIDGE IVPUSH (17:23)
--- NOTE | 2024-07-19 19:03 | PC.NURSE ---
Sepsis worksheet completed and submitted to [employer].
--- NOTE | 2024-07-19 19:13 | PC.NURSE ---
assumed care of patient at this time. report received from Argelia DEMARCO.
--- NOTE | 2024-07-19 19:43 | PC.NURSE ---
lidocaine and spray given to Halima MITCHELL for abscess drainage
--- NOTE | 2024-07-19 20:14 | MHC.EDTECH ---
Called [facility] on be half of Halima MITCHELL. [facility] line stated that they are closed to transfers unless they are STEMI, Pedi, OB, or Trauma. Halima would like to reach out to [facility] [place].
[2024-07-19] MEDS: Lidocaine HCl 1 % MPF 5 ML VIAL INFILTRATI ×2 (20:30→20:31)
--- NOTE | 2024-07-19 20:30 | MHC.EDTECH ---
Called [facility], accepted at [address] Mccall. ED-ED transfer.
--- NOTE | 2024-07-19 21:40 | PC.NURSE ---
pt being transferred to [facility] ED - nurse to nurse report called to RN ambulance transport here now for pt.
== END 2024-07-19 21:48 | disposition short-term general hospital (02) ==
PROVIDERS: Emergency Provider Emergency Medicine Emergency Medical Services
DX: J36 Peritonsillar abscess (principal); R68.84 Jaw pain; M54.2 Cervicalgia; R00.0 Tachycardia, unspecified; R13.10 Dysphagia, unspecified; R11.0 Nausea; R50.9 Fever, unspecified; Z79.899 Other long term (current) drug therapy
CPT/HCPCS: 42700; 70491; 80048; 80076; 83605; 83690; 85025; 87040; 87651; 96361; 96365; 96375; 99285; J0295; J1100; J1920; J2003; J2270; Q9967

== ENCOUNTER → 2024-07-19 16:46 | Outpatient (BNV) | payer MEDICAID, SELFPAY | PROVIDERS: Emergency Provider Emergency Medicine Emergency Medical Services; Visit Provider Radiology Diagnostic Radiology | DX: J35.1 Hypertrophy of tonsils (principal) | CPT/HCPCS: 70491 ==

== ENCOUNTER 2025-03-04 07:50 | Emergency (ER) | payer MEDICAID, SELFPAY ==
[2025-03-04 07:57] VITALS: BP 196/101; PULSE 107; RESP 18; TEMP 36.6; O2SAT 96; BMI 27.9
--- NOTE | 2025-03-04 07:59 | ECG_ITS ---
Test Reason : TACHYCARDIA Blood Pressure : */* mmHG Vent. Rate : 104 BPM Atrial Rate : 104 BPM P-R Int : 162 ms QRS Dur : 86 ms QT Int : 338 ms P-R-T Axes : 25 -4 46 degrees QTcB Int : 444 ms Sinus tachycardia Cannot rule out Anterior infarct (cited on or before 27-Mar-2024) Abnormal ECG When compared with ECG of 27-Mar-2024 17:14, No significant change was found Referred By: Generic ED Physician Electronically Signed By: JOEY STEVENS MD
[2025-03-04 08:16] VITALS: BP 163/101; PULSE 107
[2025-03-04 08:33] VITALS: BP 158/99; PULSE 108; RESP 18; TEMP 36.6; O2SAT 98
--- NOTE | 2025-03-04 08:33 | ED_ITS ---
HPI - General Adult General Chief complaint: General Medical Stated complaint: Hypertension Time Seen by Provider: 03/04/25 08:03 Source: patient Mode of arrival: ambulatory Limitations: no limitations History of Present Illness ED Provider: MARY CAMARILLO narrative: 54 yo male with PMH of HTN, palpitations, here with c/o not taking his atenolol for 3 weeks has been on it for years - states no PCP and ran out. He has no cp/sob. He noted he just lost his mom upstairs as a patient a couple of hours ago then felt his BP and HR up. He has had this before. He is feeling grief. He has no CP/SOB, no recent n/v/d. He has been doing fine otherwise. He has a questionable wrist cuff at home. No numbness, weakness, headaches. MD complaint: anxiety, HTN, no meds Onset (ago): hour(s) (couple) Severity: moderate Relieving factors: none Exacerbating factors: other Associated symptoms: denies other symptoms Treatments prior to arrival: none Related Data Home Medications ?Medication ?Instructions ?Recorded ?Confirmed atenolol 25 mg tablet 25 mg PO DAILY 12/05/20 Previous Rx's ?Medication ?Instructions ?Recorded hydrochlorothiazide 25 mg tablet 25 mg PO DAILY 30 day s #30 tabs 03/15/20 atenolol 25 mg tablet 25 mg PO DAILY #90 tabs 03/13 10/03 atenolol 25 mg tablet 25 mg PO DAILY #90 tabs 02/11 08/04 Allergies Allergy/AdvReac Type Severity Reaction Status Date / Time No Known Allergies Allergy Verified 03/04/25 07:58 Review of Systems Review of Systems: Constitutional : No Fever, No Chills ENT/Mouth : No sore throat, No Rhinorrhea Eyes: No Eye Pain, No Swelling, No Redness Cardiovascular : No Chest Pain, No SOB, No Dyspnea on Exertion Respiratory : No Cough, No Sputum Gastrointestinal : No Nausea, No Vomiting, No Diarrhea, No abdominal Pain Skin : No Skin Lesions, No rash Neuro : No Weakness, No Numbness, No Dizziness, no Headache All other systems reviewed and are negative [facility] Past Medical History Attestation statement: The following information was validated with the patient. Source: old records reviewed Medical History Epidermal inclusion cyst Hypertension Spontaneous pneumothorax Surgical History History of removal of cyst (~2020) No pertinent past surgical history Social History Social History Alcohol intake: current Alcohol intake frequency: holidays/special occasions only Patient Tobacco Use Status: Never used Tobacco Advance Directives: No Advance Directives Information Provided: No Physical Exam ED Vital Signs: Vital Signs - 24 hr 03/04/25 07:57 03/04/25 08:16 Temperature 97.9 F Pulse Rate 107 H 107 H Respiratory Rate 18 Blood Pressure 196/101 H 163/101 H Pulse Oximetry 96 Oxygen Delivery Method Room Air BMI result Body Mass Index 27.9 Appearance: Alert. Oriented X3. No acute distress. anxious trying to emotionally control Eyes: Pupils equal, round and reactive to light. ENT: Pharynx normal. Neck: Normal inspection. Neck supple. CVS: tachycardic heart rate and rhythm. Pulses normal. Respiratory: No respiratory distress. Breath sounds normal. Abdomen: Soft and nontender. Skin: Skin warm and dry. Normal skin color. Normal skin turgor. Extremities: No lower extremity edema. Neuro: Oriented X 3. No motor deficit. No sensory deficit. CN2-12 intact Course Course Course Narrative: 919am relaxed and feeling better, VS improved Medications Administered Discontinued Medications Generic Name Dose Route Start Last Admin Trade Name Freq PRN Reason Stop Dose Admin Atenolol 25 mg 03/04/25 08:06 03/04/25 08:16 Atenolol 25 Mg Tablet PO 03/04/25 08:07 25 mg ONCE ONE Administration Protocol Lorazepam 1 mg 03/04/25 08:06 03/04/25 08:16 Lorazepam 1 Mg Tablet PO 03/04/25 08:07 1 mg ONCE ONE Administration Medical Decision Making Medical Decision Making MDM Narrative: 54 yo male with PMH of HTN, palpitations, here with c/o palpitations, anxiety, HTN not compliant with atenolol for 3 weeks though has been on it for 5 years no end organ symptoms no headaches, no CP - will give atenolol and oral ativan. Suspect component of non compliance and grief Differential Diagnosis Differential Diagnoses: The differential diagnosis associated with the presentation includes chronic HTN, grief response Admission/Observation Consideration of admission/observation: Escalation of care including admission/observation considered asymptomatic feels better, stable for DC Independent Interpretation I performed an independent interpretation of an: EKG Interpretation: Rate: 104 Rhythm: sinus tach Rowan: left Normal P waves. Normal STEPHANIE. Normal QRS complex. ST T wave : left, no JOSE ROBERTO qTC: 444 prior studies: no acute ischemia The study has been interpreted contemporaneously by me. . External Record Review External record reviewed: Outpatient record Prescription Management I considered prescription management with: Other Discharge Plan Discharge Clinical Impression: Hypertension Patient Disposition: Home, Self-Care Instructions: Chronic Hypertension (ED) Additional Instructions: return for worsening pain, confusion, headaches, chest pain or trouble shaylee athing, or any other concerns Prescriptions: New atenolol 25 mg tablet 25 mg PO DAILY Qty: 90 2RF No Action hydrochlorothiazide 25 mg tablet 25 mg PO DAILY 30 Days Qty: 30 0RF atenolol 25 mg tablet 25 mg PO DAILY Qty: 90 2RF atenolol 25 mg tablet 25 mg PO DAILY Print Language: Tristanian
--- OUTSIDE RECORDS SUMMARY | 2025-03-04 08:37 | XMS_ITS | Clinical Summary ---
Author Organization [facility] Address [address] [place] [address] Care Team Providers Care Care Aide Name Role Phone Ref, Has No Pcp Or Primary Care Provider Unavail able Allergies No known active allergies Social History Tobacco Use Types Packs/Day Years Used Date Smoking Tobacco: Never Assessed Sex and Gender Information Value Date Recorded Sex Assigned at Male 07/20/2024 12:37 AM EDT Legal Sex Male 9:17 PM EDT Gender Identity Not on file Sexual Orientation Not on file Last Filed Vital Signs Vital Sign Reading Time Taken Comments Blood Pressure 129/76 07/20/2024 4:00 PM EDT Pulse 93 07/20/2024 4:00 PM EDT Temperature 36.7 C (98 F) 07/20/2024 5:00 AM EDT Respiratory Rate 17 07/20/2024 4:00 PM EDT Oxygen Saturation 92% 07/20/2024 4:00 PM EDT Inhaled Oxygen Concentration - - Weight 79.4 kg (175 lb) 07/19/2024 11:00 PM EDT Height 175.3 cm (5' 9 ) 07/19/2024 11:00 PM EDT Body Mass Index 25.84 07/19/2024 11:00 PM EDT Plan of Treatment Health Maintenance Due Date Last Done Comments Cologuard 1968 Colon Cancer Screening 1968 Colonoscopy 1968 FOBT / Fit Test 1968 HIV Screening 1968 Hepatitis C Screening 1968 Sigmoidoscopy 1968 Hepatitis B Vaccines (1 of 3 - 19+ 3-dose series) 1987 DTaP,Tdap,and Td Vaccines (1 - Tdap) 1990 Pneumococcal Vaccine: 50+ Ye ars (1 of 1 - PCV) 2018 Zoster Vaccines (1 of 2) 2018 Alcohol/Substance Use Screening 05/13/2024 Depression Screening and Follow-Up 05/13/2024 Social Drivers of Health Tabitha ual Screening 05/13/2024 COVID-19 Vaccine ( season) 2025 08/04/2021, 10/12/2020, 09/13/2020 Influenza Vaccine (#1) 2025 Basic Metabolic Panel 07/20/2025 07/20/2024 Diabetes Screening 07/21/2027 07/20/2024 RSV Vaccine (60+ years old a nd patients) (1 - 1-dose 75+ series) 2043 Procedures * Due to [place] Per Vices law, this organization might not be sharing negative HIV tests. Procedure Name Priority Date/Time Associated Diagnosis Comments BASIC METABOLIC PANEL STAT 07/20/2024 1:15 AM EDT from Last 3 Months or Most Recently Relevant to Health Maintenance Results * Due to [place] Per Vices law, this organization might not be sharing negative HIV tests. * (ABNORMAL) BMP - Basic Metabolic Panel (07/20/2024 1:15 AM EDT) NA 139 135 - 145 mmol/L 07/20/2024 1:56 AM EDT [facility] K 3.9 3.5 - 5.3 mmol/L 07/20/2024 1:56 AM EDT [facility] Cl 100 98 - 107 mmol/L 07/20/2024 1:56 AM EDT [facility] CO2 20(L) 22 - 32 mmol/L 07/20/2024 1:56 AM EDT [facility] BUN 12 7 - 23 mg/dL 07/20/2024 1:56 AM EDT [facility] Creatinine 0.85 0.60 - 1.30 mg/dL 07/20/2024 1:56 AM EDT [facility] Glucose 165(H) 65 - 99 mg/dL 07/20/2024 1:56 AM EDT [facility] Calcium 9.4 8.6 - 10.5 mg/dL 07/20/2024 1:56 AM EDT [facility] Anion Gap 19(H) 5 - 15 07/20/2024 1:56 AM EDT [facility] eGFR >90 >=60 mL/min/1. 73m2 07/20/2024 1:56 AM EDT [facility] Comment:The estimated glomer ular filtration rate (eGFR) is calculated using a new formula developed by the NKF-ASN task force to eliminate race-based correction factors. The new formula uses serum/plasma creatinine, age, and gender to determine eGFR. A value below 60mls/min might indicate kidney disease and will be flagged. For additional information, see Luisa et al, Am J Kidney Dis. 2021;79(2):268- 288, A Unifying Approach for GFR estimation: Recommendations of the NKF-ASN Task Force on Reassessing the Inclusion of Race in Diagnosing Kidney Disease . 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
[2025-03-04 09:05] VITALS: BP 146/94; PULSE 89; RESP 18; O2SAT 96
[2025-03-04 10:00] VITALS: BP 146/94; PULSE 89; RESP 18; TEMP 36.6; O2SAT 96
== END 2025-03-04 10:01 | disposition home or self-care (01) ==
PROVIDERS: Emergency Provider Emergency Medicine
DX: R00.0 Tachycardia, unspecified (principal); I10 Essential (primary) hypertension; R94.31 Abnormal electrocardiogram [ECG] [EKG]; Z79.899 Other long term (current) drug therapy
CPT/HCPCS: 93005; 99283; 99284

== ENCOUNTER → 2025-03-04 07:59 | Outpatient (BNV) | payer MEDICAID, SELFPAY | PROVIDERS: Emergency Provider Emergency Medicine; Visit Provider Internal Medicine Cardiovascular Disease | DX: R00.0 Tachycardia, unspecified (principal) | CPT/HCPCS: 93010 ==